=== PATIENT | male | born 1945 | race Caucasian/White ===

== ENCOUNTER 2016-12-11 14:27 | Emergency (ER) | payer MEDICARE, OTHER ==
[~2016-12-11] VITALS: Wt 94.0 kg
[~2016-12-11 14:27] MED LIST: ACET325T45 PO; ASPI-664 PO; ATOR40TA68 PO; BISA10SU58 PR; CALC667T2 PO; CHOL20003 PO; CLOP75TA4 PO; CRAN3875 PO; CRAN425C PO; DOCU-144 PO; FERR-55 PO; FLUT16SP24 NASAL; HYDR-3498 PO; LACT1CAP5 PO; LANT3I SC; MAGN400O4 PO; METO25TA4 PO; NA P118E PR; NEPH PO; NIFE30TA60 PO; ONDA4TAB96 PO; PANT40TA3 PO
[2016-12-11] MEDS ORDERED: HYDROmorphONE 1 MG/ML SYG IV STA (15:01)
[2016-12-11] MEDS ORDERED: ONDANSETRON 4 MG INJ IV STA (15:01)
[2016-12-11 15:21] LABS: ADD SCAN DIFF NO
[2016-12-11 15:23] LABS: BASOPHIL # 0.1 10^3/ul (0.0-0.1); BASOPHILS % 0.5 % (0.0-2.0); EOSINOPHILS # 0.2 10^3/ul (0.0-0.5); EOSINOPHILS % 1.6 % (0.0-7.0); HEMATOCRIT 36.2 % (42.0-52.0); HEMOGLOBIN 11.5 g/dl (14.0-18.0); LYMPHOCYTES # 1.4 10^3/ul (0.8-2.9); LYMPHOCYTES % 13.9 % (15.0-51.0); MEAN CORPUSCULAR HEMOGLOBIN 28.5 pg (29.0-33.0); MEAN CORPUSCULAR HGB CONC 31.8 g/dl (32.0-37.0); MEAN CORPUSCULAR VOLUME 89.8 fl (82.0-101.0); MEAN PLATELET VOLUME 11.6 fl (7.4-10.4); MONOCYTE # 0.6 10^3/ul (0.3-0.9); MONOCYTES % 5.5 % (0.0-11.0); NEUTROPHIL # 7.8 10^3/ul (1.6-7.5); NEUTROPHILS % 78.1 % (39.0-77.0); PLATELET COUNT 211 10^3/UL (140-415); RED BLOOD COUNT 4.03 10^6/ul (4.70-6.10); RED CELL DISTRIBUTION WIDTH 13.5 % (11.5-14.5); WHITE BLOOD COUNT 9.9 10^3/ul (4.8-10.8)
--- NOTE | 2016-12-11 15:30 | ERA ---
ER Documentation Chief Complaint Date/Time DATE: 12/11/16 TIME: 15:28 Chief Complaint total body pain s/p dialysis on 12/10, left arm, left shoulder pain HPI This is a 71-year-old male who states that he went to dialysis yesterday and that during dialysis she started cramping and he says he "lost a lot of blood". He says he completed dialysis and then went home and said he started having total body pain including loss of cramps in his legs left more than right. She has he hurts all over including his arms and chest and legs. He is a very poor historian and gives limited information. Denies any headache or focal neurological complaints. ROS All systems reviewed and are negative except as per history of present illness. Medications Home Meds Active Scripts Hydrocodone/Acetaminophen ([place] 5-325 Tablet) 1 Each Tablet, 1 TAB PO Q6H Y for PAIN, #20 TAB Prov:MAKENNA BRAY DO 12/11/16 Reported Medications Dextran/Hypromellose/Glycerin (Artificial Tears Drops) 15 Ml Drops, 1 DROP BOTH EYES QID, EA 12/11/16 Insulin Glargine* (Lantus*) 100 Unit/Ml Soln, 10 UNIT SC QHS, #1 VIAL 12/11/16 Acetaminophen* (Tylenol*) 500 Mg Tab, 1000 MG PO Q4H Y for PAIN LEVEL 4-6/10, TAB 12/11/16 Multivit/Ca Carb/B Cmplx/Fa* (Doreen-Gisella*) 1 Tab Tab, 1 TAB PO DAILY, TAB 01/01/15 Pantoprazole* (Protonix*) 40 Mg Tablet.dr, 40 MG PO DAILY, TAB 01/01/15 Aspirin* (Aspirin* EC) 81 Mg Tablet.dr, 81 MG PO DAILY, TAB 01/01/15 Atorvastatin* (Atorvastatin*) 40 Mg Tablet, 40 MG PO HS, TAB 01/01/15 Hydrocodone Bit-Acetaminophen* ([place]*) 5-325 Mg Tab, 1 TAB PO Q4H Y for PAIN LEVEL 7-9/10, TAB 11/03/14 Calcium Acetate* (Phoslo*) 667 Mg Tablet, 1334 MG PO WITH MEALS TID, TAB 09/21/14 Bisacodyl* (Dulcolax*) 10 Mg/Supp.rect Supp.rect, 10 MG MA DAILY Y for CONSTIPATION, SUPP.RECT 09/21/14 Docusate Sodium* (Colace*) 100 Mg Capsule, 200 MG PO QHS Y for CONSTIPATION, CAP 09/21/14 Acetaminophen* (Acetaminophen*) 325 Mg Tablet, 650 MG PO Q4H Y for MILD PAIN LEVEL 1-3, TAB 09/21/14 Cranberry Extract (Cranberry) 425 Mg Capsule, 425 MG PO DAILY 09/21/14 Ferrous Sulfate* (Ferrous Sulfate*) 325 Mg Tablet, 325 MG PO TID, TAB 09/21/14 Discontinued Reported Medications Lactobacillus Acidophilus (Acidophilus) 1 Each Capsule, 1 EACH PO DAILY 04/20/15 Ondansetron Hcl* (Ondansetron Hcl*) 4 mg -ODT Tab.disper, 4 MG PO Q6H Y for NAUSEA AND OR VOMITING, TAB 01/01/15 Metoprolol Tartrate* (Lopressor*) 25 Mg Tablet, 25 MG PO BID, TAB 01/01/15 Clopidogrel Bisulfate* (Clopidogrel Bisulfate*) 75 Mg Tablet, 75 MG PO DAILY, TAB 01/01/15 Na Phos,M-B/Na Phos,Di-Ba* (Fleet* Enema) 118 Ml Enema, 118 ML MA Q48H Y for CONSTIPATION, ENEMA 11/22/14 Magnesium Hydroxide* (Milk Of Magnesia*) 400 Mg/5 Ml Oral.susp, 30 ML PO DAILY, ML 09/21/14 Cran/Vitc/Mannose/Inulin/Brom (Uti-Stat Liquid) 3,875 Mg/30 Ml Liquid, 3875 MG PO BID 09/21/14 Fluticasone Propionate* (Flonase* Nasal) 50 Mcg/[place] - 16 Gm [place].susp, 2 SPRAY NASAL DAILY, SPRAY TO EACH NOSTRIL 09/21/14 Cholecalciferol (Vitamin D3) (VITAMIN D-3) 2,000 Unit Capsule, 2000 UNIT PO DAILY 09/21/14 Nifedipine* (Nifedipine ER*) 30 Mg Tablet.sa, 30 MG PO DAILY, TAB.SA 09/21/14 Discontinued Scripts Insulin Glargine* (Lantus*) 100 Unit/Ml Soln, 8 UNIT SC QHS for 0 Days Prov:VAHID PLATA MEDICINE AIDE 10/10/14 Allergies Allergies: Uncoded Allergies: FISH, CHEESE, SALAD DRESSING (Allergy, Unknown, rash, 01/01/15) PMhx/Soc Anesthesia Reaction: No Hx Neurological Disorder: Yes Hx Respiratory Disorders: No Hx Cardiac Disorders: Yes Hx Psychiatric Problems: No Hx Miscellaneous Medical Probl: Yes (ESRD with HD, HTN,CVA, R sided mass for the last 1-1/2 years) Hx Alcohol Use: Yes Hx Substance Use: No Hx Tobacco Use: No Smoking Status: Never smoker FmHx Family History: No coronary disease Physical Exam Vitals Vital Signs Date Time Temp Pulse Resp B/P Pulse Ox O2 Delivery O2 Flow Rate FiO2 12/11/16 16:04 98.8 77 14 151/68 98 Room Air 12/11/16 15:04 98.8 80 12 184/81 97 Physical Exam Const: Well-developed, well-nourished Head: Atraumatic, normocephalic Eyes: Normal Conjunctiva, PERRLA, EOMI, normal sclera, no nystagmus ENT: Normal External Ears, Nose and Mouth, moist mucus membranes. Neck: Full range of motion. No meningismus, no lymphadenopathy. Resp: Clear to auscultation bilaterally, no wheezing, rhonchi, rales Cardio: Regular rate and rhythm, no murmurs, S1 S2 present Abd: Soft, non tender x 4, non distended. Normal bowel sounds, no guarding or rebound, no pulsitile abdominal masses or bruits Skin: No petechiae or rashes, no ecchymosis , no maculopapular rash Back: No midline or flank tenderness Ext: No cyanosis, or edema, FROM x 4, normal inspection, neurovascularly intact x 4, the patient started actively having cramps in his hamstring in the left leg Neur: Awake and alert, STR 5/5 x 4, sensation intact x 4, no focal findings, cerebellum intact Psych: Normal Mood and Affect Result Diagram: 12/11/16 1512 12/11/16 1512 Results 24 hrs Laboratory Tests Test 12/11/16 15:12 White Blood Count 9.910^3/ul Red Blood Count 4.0310^6/ul Hemoglobin 11.5g/dl Hematocrit 36.2% Mean Corpuscular Volume 89.8fl Mean Corpuscular Hemoglobin 28.5pg Mean Corpuscular Hemoglobin Concent 31.8g/dl Red Cell Distribution Width 13.5% Platelet Count 78829^3/UL Mean Platelet Volume 11.6fl Neutrophils % 78.1% Lymphocytes % 13.9% Monocytes % 5.5% Eosinophils % 1.6% Basophils % 0.5% Nucleated Red Blood Cells % 0.0/100WBC Neutrophils # 7.810^3/ul Lymphocytes # 1.410^3/ul Monocytes # 0.610^3/ul Eosinophils # 0.210^3/ul Basophils # 0.110^3/ul Nucleated Red Blood Cells # 0.010^3/ul Sodium Level 138mmol/L Potassium Level 4.8mmol/L Chloride Level 96mmol/L Carbon Dioxide Level 27mmol/L Anion Gap 20 Blood Urea Nitrogen 61mg/dl Creatinine 4.69mg/dl Glucose Level 321mg/dl Calcium Level 8.4mg/dl Troponin I 0.016ng/ml Current Medications Medications (Trade) Dose Ordered Sig/[place] Route PRN Reason Start Time Stop Time Status Last Admin Dose Admin Hydromorphone HCl (Dilaudid) 1 mg ONCE STAT IV 12/11/16 15:01 12/11/16 15:04 DC 12/11/16 15:12 Ondansetron HCl (Zofran Inj) 4 mg ONCE STAT IV 12/11/16 15:01 12/11/16 15:04 DC 12/11/16 15:12 Procedures/MDM EKG: Rate/Rhythm: Normal sinus rhythm heart rate 80, hyperacute T waves in leads V1 through V3 QRS, ST, QT: NORMAL MA, QRS, QT] Impression: Abnormal EKG Patient's blood work is relatively unremarkable. Patient states this happens every time he goes to dialysis and he has been telling them about this for quite a while and not responding to his complaints. The patient states every dialysis he gets the same muscle cramps that he had today and gets a little dizzy. Advised him that he may want to try having some coconut water before dialysis to provide some more electrolytes. Discharge him with [place] for pain control as needed. He says he feels completely normal now Departure Diagnosis: Primary Impression: Muscle cramps Condition: Stable MAKENNA BRAY DO December 11, 2016 15:30
[2016-12-11 15:37] LABS: POTASSIUM 4.8 mmol/L (3.5-5.1)
[2016-12-11 15:39] LABS: CREATININE 4.69 mg/dl (0.61-1.24)
[2016-12-11 15:40] LABS: CALCIUM 8.4 mg/dl (8.4-10.2)
--- NOTE | 2016-12-11 15:40 | RADRPT ---
PROCEDURE: XR Chest 1 View. CLINICAL INDICATION: Chest pain TECHNIQUE: AP view of the chest was obtained. COMPARISON: January 01, 2015 FINDINGS: The cardiomediastinal silhouette is within normal limits. Minimal atelectasis is seen at the lung ba ses. No consolidations are identified. No pneumothorax is seen. The osseous structures appear carlyle sly intact. IMPRESSION: Minimal atelectasis at the lung bases. RPTAT: AA .Bairon Dougherty MD, Date Time Electronically viewed and signed by .Bairon Dougherty MD, on 12/11/2016 15:40 .P/
[2016-12-11 15:51] LABS: TROPONIN-I 0.016 ng/ml (0.00-0.12)
[2016-12-11] MEDS ORDERED: TYL500 PO (18:30)
[2016-12-11] MEDS ORDERED: LANT3I SC (18:31)
[2016-12-11] MEDS ORDERED: DEXT15DR2 BOTH EYES (18:33)
[2016-12-11] MEDS ORDERED: HYDR-906 PO (18:36)
[2016-12-11 18:46] VITALS: BP 125/84; PULSE 89; RESP 14; TEMP 98.8
== END 2016-12-11 18:51 | disposition home or self-care (01) ==
LOC: E/R 14:27
DX: R25.2 Cramp and spasm (principal); I12.0 Hypertensive chronic kidney disease with stage 5 chronic kidney disease or end stage renal disease; N18.6 End stage renal disease; Z79.4 Long term (current) use of insulin; Z79.01 Long term (current) use of anticoagulants; Z99.2 Dependence on renal dialysis; Z79.82 Long term (current) use of aspirin
CPT/HCPCS: 36415; 71010; 80048; 84484; 85025; 93005; 96374; 96375; 99285; J1170; J2405